=== PATIENT | male | born 1950 | race Hispanic/Latino ===

== ENCOUNTER 2019-05-15 04:12 | Emergency (ER) | payer SELFPAY ==
[2019-05-15] MEDS ORDERED: ASPIRIN PO ONE (04:20)
[2019-05-15 04:40] LABS: Basophils # (Auto) 0.1 K/mm3 (0.0-0.1); Basophils % (Auto) 0.6 % (0.0-1.8); Eosinophils # (Auto) 0.2 K/mm3 (0.0-0.4); Eosinophils % (Auto) 2.2 % (0.0-4.3); Hematocrit 42.2 % (35.5-45.6); Hemoglobin 14.1 gm/dl (11.8-15.2); Lymphocytes # (Auto) 3.3 K/mm3 (1.2-5.4); Lymphocytes % (Auto) 38.4 % (13.4-35.0); Mean Corpuscular HGB Conc 33 % (32-34); Mean Corpuscular Volume 81 fl (84-94); Monocytes # (Auto) 0.7 K/mm3 (0.0-0.8); Monocytes % (Auto) 8.2 % (0.0-7.3); Platelet Count 218 K/mm3 (140-440); Red Blood Count 5.24 M/mm3 (3.65-5.03)
[2019-05-15 05:03] LABS: BUN/Creatinine Ratio 29; Blood Urea Nitrogen 23 mg/dL (9-20); Calcium 9.1 mg/dL (8.4-10.2); Hemolysis Index 15
[2019-05-15] MEDS ORDERED: MORPHINE IV ONE ×2 (06:48→08:22)
--- NOTE | 2019-05-15 07:04 | Emergency Department Report ---
ED Chest Pain HPI - General Chief Complaint: Chest Pain Stated Complaint: CHEST PAIN Time Seen by Provider: 05/15/19 06:36 Source: patient Mode of arrival: Ambulatory Limitations: No Limitations - History of Present Illness Initial Comments: 69-year-old male presents to the emergency department with complaint of some generalized chest pain, upper back pain with some radiation up the neck and sometimes down the bilateral arms. This has been going on intermittently for the past few days and is associated with some mild shortness of breath. He denies any lower extremity swelling, fever, nausea, vomiting or diaphoresis. He follows with a outpatient clinic for primary care. He has a history of elevated blood pressure. He denies any tobacco or illicit drug use. No recent travel or sick contacts at home. Severity scale (0 -10): 8 - Related Data Previous Rx's Medication Instructions Recorded Last Taken Type Cyclobenzaprine HCl [Flexeril 5 MG 5 mg PO TID PRN #12 tab 05/15/19 Unknown Rx TAB] Allergies Allergy/AdvReac Type Severity Reaction Status Date / Time No Known Allergies Allergy Verified 05/15/19 04:20 Heart Score - HEART Score History: Slightly suspicious EKG: Non-specific Age: > 65 Risk factors: 1-2 risk factors Troponin: < normal limit HEART Score: 4 - Critical Actions Critical Actions: 4-6 pts:12-16.6% risk of adverse cardiac event. Should be admitted ED Review of Systems ROS: Stated complaint: CHEST PAIN Other details as noted in HPI Comment: All other systems reviewed and negative Constitutional: denies: chills, fever Eyes: denies: eye pain, vision change ENT: denies: ear pain, throat pain Respiratory: shortness of breath. denies: cough Cardiovascular: chest pain. denies: palpitations, edema Gastrointestinal: denies: abdominal pain, vomiting Genitourinary: denies: dysuria, discharge Musculoskeletal: back pain. denies: joint swelling Skin: denies: rash, lesions Neurological: denies: numbness, paresthesias ED Past Medical Hx - Past Medical History Previous Medical History?: Yes Hx Hypertension: Yes - Surgical History Past Surgical History?: Yes Additional Surgical History: left leg - Social History Smoking Status: Former Smoker Substance Use Type: None - Medications Home Medications: Home Medications Medication Instructions Recorded Confirmed Last Taken Type Cyclobenzaprine HCl [Flexeril 5 MG 5 mg PO TID PRN #12 tab 05/15/19 Unknown Rx TAB] ED Physical Exam - General Limitations: No Limitations - Other Other exam information: GENERAL: The patient is well-developed well-nourished. HENT: Normocephalic. Atraumatic. Patient has moist mucous membranes. EYES: Extraocular motions are intact. Pupils equal reactive to light bilaterally. NECK: Supple. Trachea is midline. No midline tenderness to palpation, step-off or deformity. There is some reproducible left-sided paraspinal and trapezius muscle tenderness to palpation. CHEST/LUNGS: Clear to auscultation. There is no respiratory distress noted. HEART/CARDIOVASCULAR: Regular. There is no tachycardia. There is no murmur. ABDOMEN: Abdomen is soft, nontender. Patient has normal bowel sounds. There is no abdominal distention. SKIN: Skin is warm and dry. NEURO: The patient is awake, alert, and oriented. The patient is cooperative. The patient has no focal neurologic deficits. The patient has normal speech. MUSCULOSKELETAL: There is no tenderness or deformity. There is no limitation range of motion. There is no evidence of acute injury. Muscle strength 5 out of 5 upper and lower extremities bilaterally. BACK: No midline thoracic or lumbar tenderness to palpation, step-off or deformity. There is reproducible left upper paraspinal tenderness to palpation with some taut musculature. ED Course Vital Signs 05/15/19 05/15/19 05/15/19 04:17 05:18 05:22 Temperature 97.5 F L Pulse Rate 76 Respiratory 18 18 Rate Blood Pressure 215/117 Blood Pressure [Left] O2 Sat by Pulse 98 97 100 Oximetry 05/15/19 05/15/19 05/15/19 05:30 05:46 06:00 Temperature Pulse Rate 60 67 67 Respiratory 11 L 10 L 10 L Rate Blood Pressure 147/71 180/71 Blood Pressure [Left] O2 Sat by Pulse 96 99 99 Oximetry 05/15/19 05/15/19 05/15/19 06:16 06:30 06:46 Temperature Pulse Rate 71 64 67 Respiratory 14 15 13 Rate Blood Pressure 180/71 154/76 154/76 Blood Pressure [Left] O2 Sat by Pulse 97 97 100 Oximetry 05/15/19 05/15/19 05/15/19 07:00 07:16 07:30 Temperature Pulse Rate 63 61 57 L Respiratory 11 L 14 13 Rate Blood Pressure 154/65 154/65 126/65 Blood Pressure [Left] O2 Sat by Pulse 98 99 99 Oximetry 05/15/19 05/15/19 05/15/19 07:46 08:00 08:16 Temperature Pulse Rate 63 55 L 64 Respiratory 12 13 16 Rate Blood Pressure 154/65 136/73 126/65 Blood Pressure [Left] O2 Sat by Pulse 99 96 98 Oximetry 05/15/19 05/15/19 05/15/19 08:30 08:46 09:00 Temperature Pulse Rate 63 61 60 Respiratory 12 18 17 Rate Blood Pressure 128/61 136/73 133/72 Blood Pressure [Left] O2 Sat by Pulse 96 99 100 Oximetry 05/15/19 05/15/19 05/15/19 09:16 09:30 10:18 Temperature Pulse Rate 58 L 58 L Respiratory 17 17 Rate Blood Pressure 133/72 144/67 144/67 Blood Pressure [Left] O2 Sat by Pulse 98 97 96 Oximetry 05/15/19 05/15/19 05/15/19 10:30 10:46 11:00 Temperature Pulse Rate 61 62 60 Respiratory 11 L 13 11 L Rate Blood Pressure 124/58 144/67 137/68 Blood Pressure [Left] O2 Sat by Pulse 96 95 88 Oximetry 05/15/19 12:49 Temperature 98.3 F Pulse Rate 73 Respiratory 18 Rate Blood Pressure Blood Pressure 153/71 [Left] O2 Sat by Pulse 98 Oximetry ED Medical Decision Making - Lab Data Result diagrams: 05/15/19 04:27 05/15/19 04:27 - EKG Data -: EKG Interpreted by Me EKG shows normal: sinus rhythm, axis, intervals, QRS complexes, ST-T waves (flattening of the T waves) Rate: normal - EKG Data When compared to previous EKG there are: previous EKG unavailable Interpretation: other (flattening of the T waves, no ST elevation AR) - Radiology Data Radiology results: report reviewed, image reviewed interpreted by me: Chest x-ray does not show any acute process. There are no pleural effusions, obvious pneumonia and there is no pneumothorax. CT HEAD WITHOUT CONTRAST: HISTORY: Headache. TECHNIQUE: Sequential 2.5mm CT images. COMPARISON: none. FINDINGS: Cerebral Parenchyma: Within normal limits. Cerebellum: Within normal limits. Brainstem: Within normal limits. Ventricles: Normal. Sella: Normal. Extra-axial spaces: Normal. Basal Cisterns: Normal. Intracranial Hemorrhage: None. Midline Shift: None. Calvarium: Normal. Sinuses: Normal. Mastoid Air Cells: Normal. Visualized Orbits: Normal. IMPRESSION: Cranial CT scan within normal limits. Transcribed By: TTR Dictated By: KATYA CHOUDHURY JR, MD Electronically Authenticated By: KATYA CHOUDHURY JR, MD Signed Date/Time: 05/15/[address] SCAN OF THE CERVICAL SPINE: HISTORY: Neck pain. TECHNIQUE: Contiguous 1.25 mm axial images of the cervical spine were obtained. Sagittal and coronal reformatted images. FINDINGS: There is mild reversal of the normal cervical lordosis. No evidence for displaced fracture, subluxation or bone lesion. The posterior elements are in appropriate relationship. There is moderate multilevel degenerative disc disease and facet arthropathy. The paravertebral soft tissues are within normal limits. IMPRESSION: Moderate cervical spondylosis. No evidence for acute injury. Transcribed By: TTR Dictated By: KATYA CHOUDHURY JR, MD Electronically Authenticated By: KATYA CHOUDHURY JR, MD Signed Date/Time: 05/15/19 1043 - Medical Decision Making this patient presents to the emergency department with the complaint of pain to the neck and upper back/shoulders that radiates towards his head causing headaches. He says that sometimes it will radiate around to the front causing some generalized chest discomfort, but he is not currently complaining of any of this discomfort in the chest at this time. An EKG was done that does not show any signs of ST elevation AR, ischemia or dysrhythmia. Chest x-ray does not show any pleural effusions, pneumothorax, pneumonia, focal consolidation, or any other acute process. The patient's labs are mostly unremarkable including negative troponins 3 and he had a negative d-dimer. Patient was given some doses of pain medication with some improvement of his symptoms. The pain is often reproducible along the paraspinal and trapezius muscles. CT scan of the head did not show any bleed, shift, mass, ischemia or any other acute process. CT of the cervical spine does not show any fracture, subluxation or any acute process. The patient was seen ambulatory in the emergency department and moving all extremities. She will be discharged home to follow up with primary care and was given a referral for both orthopedist and highway painter helper. However he was instructed to return to the emergency department immediately with any return of his chest pain, worsening of symptoms, or any acute distress. - Differential Diagnosis muscle spasm, strain/sprain, AR, PE, costochondritis Critical Care Time: No Critical care attestation.: If time is entered above; I have spent that time in minutes in the direct care of this critically ill patient, excluding procedure time. ED Disposition Clinical Impression: Intermittent chest pain, Neck pain, Musculoskeletal pain Hypertension Qualifiers: Hypertension type: essential hypertension Qualified Code(s): I10 - Essential (primary) hypertension Disposition: TO HOME OR SELFCARE Is pt being admited?: No Condition: Stable Instructions: Chest Pain (ED), Musculoskeletal Pain (ED), Muscle Spasm (ED), Hypertension (ED) Additional Instructions: Please follow-up with your primary care physician. I am giving you a referral for a local orthopedist, Dr. Wilkinson, to follow up regarding your neck and shoulder pains. I am also giving a referral for a local highway painter helper/heart doctor, Dr. Gage, to follow up regarding your previous chest pains. Return to the emergency department immediately with any return of your chest pain, worsening of your symptoms, or if any acute distress. You have been prescribed a medication that is sedating and therefore should not be taken prior to driving, working, and responsible for children and in no way should be mixed with alcohol of any quantity. Prescriptions: Cyclobenzaprine HCl [Flexeril 5 MG TAB] 5 mg PO TID PRN #12 tab PRN Reason: Muscle Spasm Referrals: BO WILKINSON MD [Staff Physician] - 2-3 Days KENNETH GAGE MD [Staff Physician] - 2-3 Days [facility] [Outside] - 2-3 Days Print Language: [place]
[2019-05-15] MEDS ORDERED: TORADOL IV ONE (08:22)
--- NOTE | 2019-05-15 08:59 | XRay Report ---
PROCEDURE: XR CHEST 1V AP TECHNIQUE: Chest radiograph single view. HISTORY: Chest Pain COMPARISONS: None . FINDINGS: No mediastinal shift. Cardiac silhouette is not enlarged. No pneumothorax, effusion, or focal pulmona ry opacity identified. No acute skeletal findings. IMPRESSION: No acute pulmonary finding identified. This document is electronically signed by Herb Molina MD., May 15 2019 08:57:00 AM ET
--- NOTE | 2019-05-15 10:46 | Cat Scan Report ---
CT HEAD WITHOUT CONTRAST: HISTORY: Headache. TECHNIQUE: Sequential 2.5mm CT images. COMPARISON: none. FINDINGS: Cerebral Parenchyma: Within normal limits. Cerebellum: Within normal limits. Brainstem: Within normal limits. Ventricles: Normal. Sella: Normal. Extra-axial spaces: Normal. Basal Cisterns: Normal. Intracranial Hemorrhage: None. Midline Shift: None. Calvarium: Normal. Sinuses: Normal. Mastoid Air Cells: Normal. Visualized Orbits: Normal. IMPRESSION: Cranial CT scan within normal limits.
--- NOTE | 2019-05-15 10:48 | Cat Scan Report ---
CT SCAN OF THE CERVICAL SPINE: HISTORY: Neck pain. TECHNIQUE: Contiguous 1.25 mm axial images of the cervical spine were obtained. Sagittal and coronal reformatted images. FINDINGS: There is mild reversal of the normal cervical lordosis. No evidence for displaced fracture, subluxation or bone lesion. The posterior elements are in appropriate relationship. There is moderate multilevel degenerative disc disease and facet arthropathy. The paravertebral soft tissues are within normal limits. IMPRESSION: Moderate cervical spondylosis. No evidence for acute injury.
[2019-05-15 12:50] VITALS: BP 153/71
== END 2019-05-15 12:40 | disposition home or self-care (01) ==
LOC: ED 04:12
DX: R07.89 Other chest pain (principal); M54.2 Cervicalgia; M79.10 Myalgia, unspecified site; I10 Essential (primary) hypertension
CPT/HCPCS: 36415; 70450; 71045; 72125; 80048; 84484; 85025; 85379; 93005; 93010; 96374; 96375; 96376; 99285; J1885; J2270